=== PATIENT | male | born 1990 | race American Indian/Alaskan Native ===

== ENCOUNTER 2019-03-24 03:21 | Emergency (ER) | payer SELFPAY ==
--- NOTE | 2019-03-24 04:05 | EDM.PDOC ---
ED HPI GENERAL MEDICAL PROBLEM - General Chief Complaint: Bite:Animal, Insect Stated Complaint: dog bite to lip Time Seen by Provider: 03/24/19 04:03 Source of Information: Reports: Patient History Limitations: Reports: No Limitations - History of Present Illness INITIAL COMMENTS - FREE TEXT/NARRATIVE: This is a 28-year-old male. He got bit by his friend's dog on the lower lip. He is not up-to-date with his tetanus and he comes to the ER for evaluation. He denies any other acute trauma. Lower Lip Pain Score (Numeric/FACES): 7 - Related Data Allergies Allergy/AdvReac Type Severity Reaction Status Date / Time No Known Allergies Allergy Verified 03/24/19 03:33 Home Meds: Home Meds . [No Known Home Meds] 03/24/19 [History] Past Medical History - Past Health History Medical/Surgical History: Denies Medical/Surgical History - Past Surgical History HEENT Surgical History: Reports: Tonsillectomy Social & Family History - Family History Family Medical History: Noncontributory - Tobacco Use Smoking Status *Q: Never Smoker - Recreational Drug Use Recreational Drug Use: Yes ED ROS GENERAL - Review of Systems Review Of Systems: See Below Constitutional: Denies: Fever HEENT: Reports: Other (Lip laceration) Respiratory: Reports: No Symptoms Cardiovascular: Reports: No Symptoms Endocrine: Reports: No Symptoms GI/Abdominal: Reports: No Symptoms : Reports: No Symptoms Musculoskeletal: Reports: No Symptoms Skin: Reports: Other (As above) Neurological: Reports: No Symptoms Psychiatric: Reports: No Symptoms Hematologic/Lymphatic: Reports: No Symptoms ED EXAM, ANIMAL BITE - Physical Exam Exam: See Below Exam Limited By: No Limitations General Appearance: Alert, WD/WN, No Apparent Distress Eye Exam: Bilateral Eye: Normal Inspection Ears: Normal External Exam Nose: Normal Inspection Throat/Mouth: Other (He has about a 1 cm laceration in the mid lower lip across the vermilion border) Head: Normocephalic Neck: Supple Respiratory/Chest: No Respiratory Distress GI/Abdominal: Other (Denies any abdominal tenderness) Back Exam: Normal Inspection, Full Range of Motion Extremities: Normal Inspection, Normal Range of Motion Neurological: Alert, Oriented Psychiatric: Normal Affect, Normal Mood Skin Exam: Normal Color, Warm/Dry ED ANIMAL BITE PROCEDURES - Laceration/Wound Repair Lower Mouth Lac/Wound Length In cm: 1 Appearance: Linear, Clean Distal NVT: Neuro & Vascular Intact Anesthetic Type: Local Local Anesthesia - Lidocaine (Xylocaine): 1% Plain Local Anesthetic Volume: 3cc Skin Prep: Saline Exploration/Debridement/Repair: Wound Explored, Explored to Base Closed With: Sutures Suture Size: other (6-0) # of Sutures: 3 Suture Type: Nylon Drain Placement: No Sterile Dressing Applied: Nurse Tetanus Status Addressed: Yes Complications: No Course - Vital Signs Last Recorded V/S: Last Vital Signs Temp 97.9 F 03/24/19 03:31 Pulse 99 03/24/19 03:31 Resp 16 03/24/19 03:31 BP 149/108 H 03/24/19 03:31 Pulse Ox 98 03/24/19 03:31 - Orders/Labs/Meds Meds: Medications Discontinued Medications Generic Name Dose Route Start Last Admin Trade Name Danitza PRN Reason Stop Dose Admin Lidocaine HCl 20 ml 03/24/19 04:21 Xylocaine 1% INJECT 03/24/19 04:22 ONETIME ONE Lidocaine HCl Confirm 03/24/19 04:24 Xylocaine 1% Administered 03/24/19 04:25 Dose 50 ml .ROUTE .STK-MED ONE - Re-Assessments/Exams Free Text/Narrative Re-Assessment/Exam: 03/24/19 04:39 Please 3 sutures in the lower lip with good approximation of skin edges. The patient tolerated it well. Departure - Departure Time of Disposition: 04:39 Disposition: Home, Self-Care 01 Condition: Good Clinical Impression: Laceration of lower lip Qualifiers: Encounter type: initial encounter Qualified Code(s): S01.511A - Laceration without foreign body of lip, initial encounter - Discharge Information *PRESCRIPTION DRUG MONITORING PROGRAM REVIEWED*: Not Applicable *COPY OF PRESCRIPTION DRUG MONITORING REPORT IN PATIENT CHIDI: Not Applicable Instructions: Stitches, Yocasta, or Adhesive Wound Closure, [id number] Referrals: PCP,None [Primary Care Provider] - Forms: ED Department Discharge Additional Instructions: Keep the area clean and dry that he may take a shower, watch for infection and any sort or redness swelling or drainage return to the ER, suture removal in 5- 7 days and you may return to the ER or go to [facility] walk-in [facility], return to the ER if need to
[2019-03-24] MEDS ORDERED: Lidocaine 1% 20 ML MDV INJECT ONE (04:21)
[2019-03-24] MEDS ORDERED: Lidocaine 1% 50 ML MDV ONE (04:24)
[2019-03-24] MEDS ORDERED: Diphtheria,Pertussis(Acell),Tetanus Vaccine 0.5 ML Syringe IM ONE (04:38)
[2019-03-24] MEDS ORDERED: Lidocaine 1% 10 ML MDV INJECT ONE (04:59)
== END 2019-03-24 05:02 | disposition home or self-care (01) ==
LOC: JD.ED 03:21
DX: S01.511A Laceration without foreign body of lip, initial encounter (principal); W54.0XXA Bitten by dog, initial encounter; Z23 Encounter for immunization
CPT/HCPCS: 12011; 90471; 90700; 99282; 99283

== ENCOUNTER 2021-05-06 21:26 | Emergency (ER) | payer OTHER ==
[2021-05-06] MEDS ORDERED: Lidocaine 1% 10 ML MDV INJECT ONE (21:43)
[2021-05-06] MEDS ORDERED: Bupivacaine 0.5% 10 ML SDV INJECT ONE (21:43)
--- NOTE | 2021-05-06 21:48 | EDM.PDOC ---
ED HPI GENERAL MEDICAL PROBLEM - General Chief Complaint: Upper Extremity Injury/Pain Stated Complaint: hand injury Time Seen by Provider: 05/06/21 21:37 Source of Information: Reports: Patient History Limitations: Reports: No Limitations - History of Present Illness INITIAL COMMENTS - FREE TEXT/NARRATIVE: Mr. Hensley is a very pleasant 30-year-old gentleman who now presents the ED with a right 3rd finger injury, after his finger was struck end-on by a softball around 21:10 this evening. He is otherwise uninjured. The patient's last tetanus vaccination was on 03/24/2019. Here in the ED, the patient's initial BP is found to be elevated at 160/96, otherwise, he is hemodynamically stable, afebrile, saturating 90% on room air. He appears to be relatively comfortable, in no acute distress. Prior to this evening, the patient denies having a recent fever, chills, sore throat, ear pain, nasal or sinus congestion, cough, dyspnea, chest pain, palpitations, nausea, vomiting, constipation, diarrhea, abdominal pain, urinary symptoms, recent weight gain or weight loss, recent bloody bowel movements or black bowel movements, recent joint aches, headaches, or rashes. The patient does not have a PCP. He has not received a COVID vaccination. Right Middle Finger-Middle Pain Score (Numeric/FACES): 10 - Related Data Allergies Allergy/AdvReac Type Severity Reaction Status Date / Time No Known Allergies Allergy Verified 05/06/21 21:35 Home Meds: Home Meds cephALEXin [Keflex] 1 cap PO Q8H #20 cap 05/06/21 [Rx] Past Medical History - Past Surgical History HEENT Surgical History: Reports: Tonsillectomy Social & Family History - Tobacco Use Tobacco Use Status *Q: Never Tobacco User - Caffeine Use Caffeine Use: Reports: None - Alcohol Use Alcohol Use History: No Date/Time of Last Drink Comment: 2018 - Recreational Drug Use Recreational Drug Use: Yes Drug Use in Last 12 Months: No Recreational Drug Type: Reports: Marijuana/Hashish (last smoked 2018) - Living Situation & Occupation Living situation: Reports: Single, Alone Occupation: Employed ([employer]) Review of Systems - Review of Systems Review Of Systems: Comprehensive ROS is negative, except as noted in HPI. ED EXAM, GENERAL - Physical Exam Exam: See Below Exam Limited By: No Limitations General Appearance: Alert, WD/WN, No Apparent Distress Extremities: Other (The radial aspect of the fingernail is laying on top of the nailbed. It was able to be returned to its prooper position. Blood under the f ingernail was able to be expressed out without trephination.) Course - Vital Signs Last Recorded V/S: Last Vital Signs Temp 35.7 C L 05/06/21 21:32 Pulse 87 05/06/21 21:32 Resp 16 05/06/21 21:32 BP 160/96 H 05/06/21 21:32 Pulse Ox 98 05/06/21 21:32 - Orders/Labs/Meds Orders: Active Orders 24 hr Category Date Time Status Fingers Third Digit Rt F7 [CR] Stat Exams 05/06/21 21:42 Taken Meds: Medications Discontinued Medications Generic Name Dose Route Start Last Admin Trade Name Freq PRN Reason Stop Dose Admin Bupivacaine HCl 10 ml 05/06/21 21:43 05/06/21 21:55 Bupivacaine 0.5% 10 Ml Sdv INJECT 05/06/21 21:44 10 ml ONETIME ONE Administration Cephalexin 500 mg 05/06/21 22:20 05/06/21 22:28 Cephalexin 500 Mg Cap PO 05/06/21 22:21 500 mg ONETIME STA Administration Lidocaine HCl 10 ml 05/06/21 21:43 05/06/21 21:55 Lidocaine 1% 10 Ml Mdv INJECT 05/06/21 21:44 10 ml ONETIME ONE Administration - Re-Assessments/Exams Free Text/Narrative Re-Assessment/Exam: 05/06/21 21:44 As above, the patient's right 3rd finger was struck end-on by a softball around half an hour ago, causing a subungual hematoma and possible nailbed injury - I will be able to get a better look at it after I perform a digital block. I have ordered x-rays to evaluate for a tuft fracture. 05/06/21 22:01 4-view radiographs of the right 3rd finger appear to demonstrate a displaced fractured fragment off the distal-ulnar aspect of the tuft. No joint dislocation identified. Formal read per the Radiologist pending. Using a 50:50 admixture of bupivacaine 0.5% without epinephrine and lidocaine 1% without epinephrine, I performed a digital block to the patient's right 3rd finger. He tolerated the procedure well. 05/06/21 22:20 After the patient's finger was adequately anesthetized, the finger was irrigated with a solution of chlorhexidine and sterile water. On examination, the radial side of the fingernail was seen to be resting on top of the nailbed. I was able to manipulate it back into proper anatomic position. Blood under the fingernail was able to be expressed by simply squeezing the fingernail. Trephination is not necessary. The finger was then placed into a volar AlumaFoam splint, with some natural curve, and Louise YODER will place some gauze and Kerlix over the fingertip. Since, technically, this is an open fracture, t he patient will be started on cephalexin, and I will submit a prescription for the same. I would like the patient to follow-up with Dr. Mitchell either tomorrow or Tuesday, and I asked him to not remove the splint in the meantime. We discussed the option of pain medication. I expect that once the anesthetic wears off in a couple of hours, his finger is going to hurt quite a bit. The patient would like to continue to work, therefore he declined an offer for an opiate pain reliever. He prefers to stick with OTC ibuprofen. I will write him a note to be able to work with restrictions. Departure - Departure Time of Disposition: 22:24 Disposition: Home, Self-Care 01 Condition: Good Clinical Impression: Open fracture of distal phalanx of right middle finger, Fingernail avulsion, partial - Discharge Information *PRESCRIPTION DRUG MONITORING PROGRAM REVIEWED*: Not Applicable *COPY OF PRESCRIPTION DRUG MONITORING REPORT IN PATIENT CHIDI: Not Applicable Prescriptions: cephALEXin [Keflex] 1 cap PO Q8H #20 cap Instructions: Nail Avulsion, Finger Fracture, Adult, [id number] Referrals: PCP,None [Primary Care Provider] - Patrick Mitchell MD [Physician] - Forms: ED Department Discharge, ED Return to Work/School Form Additional Instructions: You were seen in the emergency room after the tip of your right middle finger was struck by a softball tonight. Work-up in the ER included x-rays of your right middle finger, which confirmed that you have a tuft fracture. After your finger was numbed, your fingernail was found to be outside of the nailbed. It was put back into place. Your finger was placed into a splint. Do not remove the splint. Place a glove or plastic bag over it when bathing, to prevent it from getting wet. Strictly speaking, you have an open fracture, meaning that there is a possibility of bacteria getting down to the broken bone. For this reason, you have been started on the antibiotic cephalexin (Keflex), and a prescription for cephalexin has been sent to the [facility], located at [address] [place] [address]. Take 1 tablet of cephalexin every 8 hours, starting tomorrow morning, , 05/07/2021, as prescribed. Finish the entire prescription unless told otherwise by a doctor. You may take [id number] ibuprofen, 3 to 4 tablets (600-800 mg) up to every 8 hours, with food, as needed for discomfort. You will want to ice and elevate your finger for the next few days, to help minimize swelling. Please follow-up with the Orthopedic Surgeon Dr. Patrick Mitchell either tomorrow or Tuesday. Call his office first thing tomorrow morning to make an appointment, and make sure that the receptionist secretary understands that you are following up from the ER. A note to allow you to return to work, with restrictions, has been provided to you. If any other problems, please do not hesitate to return to the ER. Sepsis Event Note (ED) - Evaluation Sepsis Screening Result: No Definite Risk - Focused Exam Vital Signs: Vital Signs Temp Pulse Resp BP Pulse Ox 05/06/21 21:32 35.7 C L 87 16 160/96 H 98 - My Orders Last 24 Hours: My Active Orders 05/06/21 21:42 Fingers Third Digit Rt F7 [CR] Stat - Assessment/Plan Last 24 Hours: My Active Orders 05/06/21 21:42 Fingers Third Digit Rt F7 [CR] Stat
[2021-05-06] MEDS ORDERED: Cephalexin 500 MG Cap PO STA (22:20)
--- NOTE | 2021-05-07 07:38 | CR ---
Right third finger: 4 views of the right third finger were obtained. Comparison: No prior finger or hand exam is available. Fracture is noted within the tuft of the distal phalanx of the right third finger. Minimal displacement is seen. Mild soft tissue swelling is noted. No proximal bony abnormality is appreciated. Impression: 1. Slightly displaced tuft fracture. 2. Soft tissue swelling. Diagnostic code #3
== END 2021-05-06 22:40 | disposition home or self-care (01) ==
LOC: JD.ED 21:26
DX: S62.632B Displaced fracture of distal phalanx of right middle finger, initial encounter for open fracture (principal); W20.8XXA Other cause of strike by thrown, projected or falling object, initial encounter; Y93.64 Activity, baseball
CPT/HCPCS: 64450; 73140; 99283; A9270; J3490; 11740

== ENCOUNTER 2022-08-10 18:25 | Emergency (ER) | payer OTHER ==
[2022-08-10] MEDS ORDERED: Acetaminophen/HYDROcodone 325-5 MG Tab PO ONE (19:35)
== END 2022-08-10 21:06 | disposition home or self-care (01) ==
LOC: JD.ED 18:25
DX: S52.324A Nondisplaced transverse fracture of shaft of right radius, initial encounter for closed fracture (principal); V49.50XA Passenger injured in collision with unspecified motor vehicles in traffic accident, initial encounter; Y92.410 Unspecified street and highway as the place of occurrence of the external cause
CPT/HCPCS: 73090; 73110; 99284; A9270; 99283

== ENCOUNTER 2023-06-16 06:19 | Day surgery (SDC) | payer OTHER ==
[~2023-06-16 06:19] MED LIST: Lactated Ringers 1,000 ML IV SCH; Sodium Chloride 0.9% 10 ML Syringe FLUSH PRN; Sodium Chloride 0.9% 10 ML Syringe FLUSH SCH
[2023-06-16] MEDS ORDERED: Propofol 200 MG/20 ML SDV ONE (06:21)
[2023-06-16] MEDS ORDERED: ceFAZolin 2 GM Vial ONE (06:21)
[2023-06-16] MEDS ORDERED: Ondansetron 4 MG/2 ML SDV ONE (06:21)
[2023-06-16] MEDS ORDERED: Midazolam 1 MG/ML 2 ML SDV ONE (06:22)
[2023-06-16] MEDS ORDERED: Ketorolac 30 MG/ML SDV ONE (06:22)
[2023-06-16] MEDS ORDERED: fentaNYL 100 MCG/2 ML SDV ONE ×2 (06:22→07:18)
[2023-06-16] MEDS ORDERED: Lidocaine 1% 4 ML ONE (06:23)
[2023-06-16] MEDS ORDERED: Bupivacaine 0.25% 10 ML SDV ONE (06:26)
[2023-06-16] MEDS ORDERED: Ondansetron 4 MG/2 ML SDV IVPUSH PRN (08:05)
[2023-06-16] MEDS ORDERED: fentaNYL 100 MCG/2 ML SDV IVPUSH PRN (08:05)
[2023-06-16] MEDS ORDERED: HYDROmorphone 0.5 MG/0.5 ML Syringe IVPUSH PRN (08:05)
[2023-06-16] MEDS ORDERED: Acetaminophen/HYDROcodone 325-5 MG Tab PO PRN (10:12)
== END 2023-06-16 11:10 | disposition home or self-care (01) ==
LOC: JD.SDS 06:19
PROVIDERS: ATTEND Orthopaedic Surgery
DX: M25.521 Pain in right elbow (principal); Z87.891 Personal history of nicotine dependence; M71.21 Synovial cyst of popliteal space [Baker], right knee; R03.0 Elevated blood-pressure reading, without diagnosis of hypertension; M71.121 Other infective bursitis, right elbow; F12.90 Cannabis use, unspecified, uncomplicated; E66.9 Obesity, unspecified; Z68.36 Body mass index [BMI] 36.0-36.9, adult; Z79.899 Other long term (current) drug therapy
CPT/HCPCS: 01710; 87070; 87075; 87205; A9270-GY; J0690; J1170; J1885; J2250; J2405; J2704; J3010; J3490; J7120